=== PATIENT | male | born 1980 | race Caucasian/White ===

== ENCOUNTER 2025-07-01 06:46 | Day surgery (SDC) | payer BC, OTHER ==
[2025-07-01] MEDS: Lactated Ringers 1,000 ML IV SCH (07:02)
[2025-07-01] MEDS ORDERED: Propofol 200 MG/20 ML SDV ONE ×2 (08:54→09:20)
[2025-07-01] MEDS ORDERED: fentaNYL 100 MCG/2 ML SDV ONE (09:20)
== END 2025-07-01 10:00 | disposition home or self-care (01) ==
LOC: VM.SDS 06:46
PROVIDERS: ATTEND Student in an Organized Health Care Education/Training Program
DX: Z12.11 Encounter for screening for malignant neoplasm of colon (principal); D12.3 Benign neoplasm of transverse colon; Z88.8 Allergy status to other drugs, medicaments and biological substances; Z79.899 Other long term (current) drug therapy
CPT/HCPCS: 00811; J2704; J3010; J7120